=== PATIENT | male | born 1995 | race Caucasian/White ===

== ENCOUNTER → 2019-02-17 | Outpatient (CLI) | payer OTHER ==
[~2019-02-17] MED LIST: ACETAMINOPHEN; IBUPROFEN 800800 M1 PO; NOHOMEMEDICATIONS; PENICILLIN VK500 M1 PO; PREDNISONE 10 M10 M1 PO
== END ==
LOC: M.MRI 02-10 14:30
DX: M25.562 Pain in left knee (principal)